=== PATIENT | male | born 1975 | race African-American/Black ===

== ENCOUNTER 2017-01-17 04:14 | Emergency (ER) | payer SELFPAY ==
[~2017-01-17] VITALS: Ht 177.8 cm; Wt 102.1 kg
[2017-01-17 04:31] VITALS: BP 148/98
[2017-01-17] MEDS ORDERED: AZIT1PAC PO (05:15)
[2017-01-17] MEDS ORDERED: AZITHROMYCIN 250 MG TABLET. PO ONE (05:15)
[2017-01-17] MEDS ORDERED: IBUPROFEN 800 MG TABLET. PO ONE (05:15)
--- NOTE | 2017-01-17 05:16 | PHYS DOC ---
Past Medical History Past Medical History: Hypertension Past Surgical History: No Surgical History Alcohol Use: None Drug Use: None Adult General Chief Complaint Chief Complaint: EARACHE/EAR PAIN HPI HPI 42-year-old male with a history of multiple prior earaches referred to ear nose and throat doctor but has not seen them yet now presents to emergency department complaining of left-sided earache typical for him. Will onset of left -sided earache. It's not worse with movement of his external ear. He has no headache or stiff neck. No fevers chills sweats or shaking chills. Denies drainage from the ear. No sore throat Review of Systems Review of Systems Constitutional: Denies fever or chills [] Eyes: Denies change in visual acuity, redness, or eye pain [] HENT: Denies nasal congestion or sore throat [] Respiratory: Denies cough or shortness of breath [] Cardiovascular: No additional information not addressed in HPI [] GI: Denies abdominal pain, nausea, vomiting, bloody stools or diarrhea [] : Denies dysuria or hematuria [] Musculoskeletal: Denies back pain or joint pain [] Integument: Denies rash or skin lesions [] Neurologic: Denies headache, focal weakness or sensory changes [] Endocrine: Denies polyuria or polydipsia [] Allergies Allergies Allergies Coded Allergies Type Severity Reaction Last Updated Verified amoxicillin Allergy Unknown 05/12/15 No codeine Allergy Unknown 05/12/15 No Physical Exam Physical Exam Well-appearing male no acute distress left TM with loss of landmarks mild bulging and erythema. Normal EAC and no pain with movement of pinna. Normal nontender mastoid and patient has supple neck. Remainder of exam is benign Constitutional: Well developed, well nourished, no acute distress, non-toxic appearance. [] HENT: Normocephalic, atraumatic, bilateral external ears normal, oropharynx moist, no oral exudates, nose normal. [] Eyes: PERRLA, EOMI, conjunctiva normal, no discharge. [] Neck: Normal range of motion, no tenderness, supple, no stridor. [] Cardiovascular:Heart rate regular rhythm, no murmur [] Lungs & Thorax: Bilateral breath sounds clear to auscultation [] Abdomen: Bowel sounds normal, soft, no tenderness, no masses, no pulsatile masses. [] Skin: Warm, dry, no erythema, no rash. [] Back: No tenderness, no CVA tenderness. [] Extremities: No tenderness, no cyanosis, no clubbing, ROM intact, no edema. [] Neurologic: Alert and oriented X 3, normal motor function, normal sensory function, no focal deficits noted. [] Psychologic: Affect normal, judgement normal, mood normal. [] Current Patient Data Vital Signs Vital Signs Date Time Temp Pulse Resp B/P (MAP) Pulse Ox O2 Delivery O2 Flow Rate FiO2 01/17/17 04:31 98.0 71 16 97 Room Air 98.0 EKG EKG [] Radiology/Procedures Radiology/Procedures [] Course & Med Decision Making Course & Med Decision Making Pertinent Labs and Imaging studies reviewed. (See chart for details) Signs and symptoms consistent with otitis media on the left side. Dose of Zithromax given in the ED as well as ibuprofen. Prescription dispensed. Patient stable for outpatient follow-up. He agrees with this plan and will follow-up with ear nose and throat as is being arranged for him and strict return precautions were given. [] Dragon Disclaimer Dragon Disclaimer This electronic medical record was generated, in whole or in part, using a voice recognition dictation system. Departure Departure Impression: Primary Impression: Left otitis media Disposition: HOME, SELF-CARE Condition: STABLE Referrals: NO PCP (PCP) Patient Instructions: Otitis Media, Adult Additional Instructions: It appears that you have another episode of otitis media. This means middle ear infection. Finish antibiotics as prescribed starting tomorrow. Rest and drink plenty of fluids. Take ibuprofen 800 mg every 6 hours and add Tylenol if you still have pain. Follow-up with your doctor in with ear nose and throat as discussed previously. Scripts Azithromycin (ZITHROMAX PACKET) 1 Gm Packet 1 PACKET PO ONCE, #1 PACKET Prov: MARQUEZ FALL MD 01/17/17 MARQUEZ FALL MD Jan 17, 2017 05:16
== END 2017-01-17 05:20 | disposition home or self-care (01) ==
LOC: ER 04:14
DX: H66.92 Otitis media, unspecified, left ear (principal); I10 Essential (primary) hypertension; Z88.1 Allergy status to other antibiotic agents; Z88.5 Allergy status to narcotic agent
CPT/HCPCS: 99283; Q0144